=== PATIENT | male | born 1955 | race Caucasian/White ===

== ENCOUNTER 2018-02-15 15:12 | Inpatient (IN) ==
[~2018-02-15 15:12] MED LIST: Lidocaine PF 1% Inj 2 ML Ampul ONE
[2018-02-15] MEDS ORDERED: fentaNYL Citrate Inj 100 MCG/2 ML Ampul ONE (15:14)
[2018-02-15] MEDS ORDERED: ceFAZolin 2 GM Premix Inj 2 GM/50 ML PIGGYBACK IV.SIG ONE (15:18)
[2018-02-15] MEDS ORDERED: Diphtheria/Tetanus/Pertussis Vaccine Inj 0.5 ML Syringe IM ONE (15:18)
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
[2018-02-15 15:35] LABS: Baso # (Auto) 0.1 th/mm3 (0.0-0.2); Eos # (Auto) 0.5 th/mm3 (0.0-0.4); Eos % (Auto) 3.2 % (0.0-4.0); Hematocrit 44.5 % (39.0-51.0); Hemoglobin 14.6 gm/dL (13.0-17.0); Lymph # (Auto) 1.9 th/mm3 (1.0-4.8); Mean Corpuscular HGB Conc 32.8 % (32.0-36.0); Mean Corpuscular Hemoglobin 30.1 pg (27.0-34.0); Mean Corpuscular Volume 91.8 fL (80.0-100.0); Mean Platelet Volume 7.6 fL (7.0-11.0); Mono # (Auto) 0.8 th/mm3 (0.0-0.9); Mono % (Auto) 5.3 % (0.0-8.0); Neut # (Auto) 11.1 th/mm3 (1.8-7.7); Neut % (Auto) 77.5 % (16.0-70.0); Platelet Count 930 th/mm3 (150-450); Red Blood Count 4.85 mil/mm3 (4.50-5.90); Red Cell Distribution Width 15.6 % (11.6-17.2); White Blood Count 14.3 th/mm3 (4.0-11.0)
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
[2018-02-15 15:45] LABS: Activated Partial Thrombo Time 27.1 sec (24.3-30.1); INR 1.2 Ratio; Prothrombin Time 11.9 sec (9.8-11.6)
[2018-02-15] MEDS ORDERED: Midazolam Inj 5 MG/ML 1 ML Vial ONE (15:50)
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
[2018-02-15] MEDS ORDERED: Lidocaine PF 1% Inj 2 ML Ampul ONE (15:52)
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
[2018-02-15] MEDS ORDERED: Propofol 1000 mg/100 ml Inj 1,000 MG/100 ML BOTTLE ONE (15:56)
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
[2018-02-15] MEDS ORDERED: Sodium Chloride 0.9% 2 ML Flush PRN IV.FLUSH (16:41)
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
[2018-02-15] MEDS ORDERED: Morphine Inj 4 MG/ML Vial IV.PUSH PRN (17:11)
[2018-02-15] MEDS ORDERED: Naloxone Inj 0.4 MG/ML Vial IV.PUSH PRN (17:18)
[2018-02-15] MEDS: Pantoprazole Inj 40 MG Vial IV.PUSH SCH (17:22)
[2018-02-15] MEDS: Sod Chloride 0.9% Inj 1,000 ML IV.CONT SCH (17:22)
[2018-02-15] MEDS: Methocarbamol Inj 1,000 MG in Dextrose 5% in Water Inj 240 ML IV.SIG SCH ×2 (17:27)
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
[2018-02-15] MEDS: Morphine Inj 30 MG/30 ML PCA.VIAL PCA PRN ×2 (17:49→23:20)
[2018-02-15] MEDS: Lidocaine 5% Patch T-DERMAL SCH (18:13)
[2018-02-15] MEDS: Multivitamin Inj 10 ML, Thiamine Inj 100 MG, Folic Acid Inj 1 MG in Sodium Chlor 0.9% I... IV.SIG SCH (18:13)
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
[2018-02-15] MEDS: Docusate Sodium 100 MG Capsule PO SCH (20:10)
[2018-02-15] MEDS: Sodium Chloride 0.9% 2 ML Flush BID IV.FLUSH SCH (20:14)
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
[2018-02-16] MEDS: Methocarbamol Inj 1,000 MG in Dextrose 5% in Water Inj 240 ML IV.SIG SCH ×6 (00:01→16:20)
[2018-02-16] MEDS ORDERED: Chlorhexidine Gluconate 2% 1 Pack (2 Cloths) TOPICAL PRN (04:00)
[2018-02-16 04:15] LABS: Baso # (Auto) 0.1 th/mm3 (0.0-0.2); Baso % (Auto) 0.3 % (0.0-2.0); Hematocrit 37.4 % (39.0-51.0); Hemoglobin 12.3 gm/dL (13.0-17.0); Lymph # (Auto) 0.6 th/mm3 (1.0-4.8); Lymph % (Auto) 2.8 % (9.0-44.0); Mean Corpuscular Hemoglobin 30.6 pg (27.0-34.0); Mean Corpuscular Volume 92.7 fL (80.0-100.0); Mean Platelet Volume 7.6 fL (7.0-11.0); Mono # (Auto) 1.4 th/mm3 (0.0-0.9); Mono % (Auto) 6.1 % (0.0-8.0); Neut # (Auto) 20.5 th/mm3 (1.8-7.7); Neut % (Auto) 90.8 % (16.0-70.0); Platelet Count 877 th/mm3 (150-450); Red Blood Count 4.03 mil/mm3 (4.50-5.90); Red Cell Distribution Width 15.5 % (11.6-17.2); White Blood Count 22.6 th/mm3 (4.0-11.0)
[2018-02-16 04:33] LABS: Anion Gap 8 meq/L (5-15); Aspartate Aminotransferase 36 U/L (15-37); Blood Urea Nitrogen 17 mg/dL (7-18); Carbon Dioxide 21.6 meq/L (21.0-32.0); Chloride 112 meq/L (98-107); Glomerular Filtration Rate 62 mL/min (>89); Glucose,Random 174 mg/dL (74-106); Potassium 4.8 meq/L (3.5-5.1); Sodium 142 meq/L (136-145)
[2018-02-16 04:34] LABS: Alanine Aminotransferase 31 U/L (12-78)
[2018-02-16 04:37] LABS: Alkaline Phosphatase 49 U/L (45-117)
[2018-02-16] MEDS: Chlorhexidine Gluconate 2% 1 Pack (2 Cloths) TOPICAL SCH (04:38)
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
[2018-02-16] MEDS: Sod Chloride 0.9% Inj 1,000 ML IV.CONT SCH ×2 (05:53→16:00)
[2018-02-16] MEDS: Docusate Sodium 100 MG Capsule PO SCH ×2 (08:45→20:57)
[2018-02-16] MEDS: Sodium Chloride 0.9% 2 ML Flush BID IV.FLUSH SCH ×2 (08:45→21:02)
[2018-02-16] MEDS: Lidocaine 5% Patch T-DERMAL SCH (08:45)
[2018-02-16] MEDS: Morphine Inj 30 MG/30 ML PCA.VIAL PCA PRN ×2 (09:00→19:17)
[2018-02-16] MEDS: Ketorolac Inj 30 MG/ML (IVP) Vial IV.PUSH SCH ×3 (12:20→23:56)
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
--- NOTE | 2018-02-16 15:02 | ECG ---
Date Performed: 02/16/2018 Time Performed: 05:02:26 PTAGE: 89 years EKG: Sinus rhythm . Low QRS voltages in precordial leads Borderline ECG NO PREVIOUS TRACING DOCTOR: Spencer Patel Interpretating Date/Time 02/16/2018 15:00:18
[2018-02-16] MEDS: Pantoprazole Inj 40 MG Vial IV.PUSH SCH (16:19)
[2018-02-16] MEDS: Multivitamin Inj 10 ML, Thiamine Inj 100 MG, Folic Acid Inj 1 MG in Sodium Chlor 0.9% I... IV.SIG SCH (17:31)
[2018-02-17] MEDS: Methocarbamol Inj 1,000 MG in Dextrose 5% in Water Inj 240 ML IV.SIG SCH ×6 (00:42→17:05)
[2018-02-17] MEDS: Morphine Inj 30 MG/30 ML PCA.VIAL PCA PRN ×2 (03:57→17:37)
[2018-02-17 04:26] LABS: Baso # (Auto) 0.1 th/mm3 (0.0-0.2); Baso % (Auto) 0.8 % (0.0-2.0); Eos # (Auto) 0.3 th/mm3 (0.0-0.4); Eos % (Auto) 2.9 % (0.0-4.0); Hematocrit 25.9 % (39.0-51.0); Hemoglobin 8.8 gm/dL (13.0-17.0); Lymph # (Auto) 1.2 th/mm3 (1.0-4.8); Lymph % (Auto) 11.3 % (9.0-44.0); Mean Corpuscular HGB Conc 34.1 % (32.0-36.0); Mean Corpuscular Hemoglobin 31.2 pg (27.0-34.0); Mean Corpuscular Volume 91.6 fL (80.0-100.0); Mean Platelet Volume 7.8 fL (7.0-11.0); Mono # (Auto) 0.9 th/mm3 (0.0-0.9); Mono % (Auto) 7.8 % (0.0-8.0); Neut # (Auto) 8.6 th/mm3 (1.8-7.7); Neut % (Auto) 77.2 % (16.0-70.0); Platelet Count 619 th/mm3 (150-450); Red Blood Count 2.83 mil/mm3 (4.50-5.90); Red Cell Distribution Width 15.7 % (11.6-17.2); White Blood Count 11.1 th/mm3 (4.0-11.0)
[2018-02-17 04:32] LABS: Albumin 2.6 g/dL (3.4-5.0); Calcium 7.3 mg/dL (8.5-10.1); Carbon Dioxide 25.6 meq/L (21.0-32.0); Potassium 4.4 meq/L (3.5-5.1); Total Protein 5.1 g/dL (6.4-8.2)
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
[2018-02-17] MEDS: Chlorhexidine Gluconate 2% 1 Pack (2 Cloths) TOPICAL SCH (06:13)
[2018-02-17] MEDS: Ketorolac Inj 30 MG/ML (IVP) Vial IV.PUSH SCH ×4 (06:22→22:19)
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
[2018-02-17] MEDS ORDERED: Tranexamic Acid Inj 1,035 MG in Sodium Chlor 0.9% Inj 100 ML IV.SIG SCH (07:48)
[2018-02-17] MEDS: Sod Chloride 0.9% Inj 1,000 ML IV.CONT SCH ×3 (08:29→19:00)
[2018-02-17] MEDS: Sodium Chloride 0.9% 2 ML Flush BID IV.FLUSH SCH ×2 (08:29→20:40)
[2018-02-17] MEDS: Docusate Sodium 100 MG Capsule PO SCH ×2 (08:30→20:40)
[2018-02-17] MEDS: Lidocaine 5% Patch T-DERMAL SCH (08:31)
[2018-02-17] MEDS ORDERED: Heparin - SQ 10,000 UNITS/ML Vial ONE (10:10)
[2018-02-17] MEDS ORDERED: Lidocaine PF 1% Inj 5 ML Syringe OTHER ONE (11:00)
[2018-02-17] MEDS ORDERED: Phenylephrine/NS 1000 MCG/10ML Syringe IV.PUSH ONE (11:00)
[2018-02-17] MEDS ORDERED: Neostigmine Inj 5 MG/5 ML Syringe IV.PUSH ONE (11:00)
[2018-02-17] MEDS ORDERED: Glycopyrrolate Inj 1 MG/5 ML Syringe IV.PUSH ONE (11:00)
[2018-02-17] MEDS ORDERED: Post-op Orders (for Pharmacy) OTHER STA (13:08)
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
[2018-02-17] MEDS ORDERED: Vancomycin Consult Pharmacy 1 EACH OTHER SCH (13:15)
[2018-02-17] MEDS ORDERED: fentaNYL Citrate Inj 100 MCG/2 ML Ampul ONE (14:07)
[2018-02-17] MEDS ORDERED: *morphine SULFATE 4 MG/ML PERIprocedure ONLY ONE ×3 (14:19→14:39)
--- NOTE | 2018-02-17 15:08 | XR ---
EXAM DATE: 02/17/2018 2:15 PM EDT AGE/SEX: 62 years / Male INDICATIONS: Short of breath. Bilateral chest tubes. CLINICAL DATA: This is the patient's subsequent encounter. Patient reports that signs and symptoms h ave been present for 3 days and indicates a pain score of 8/10. MEDICAL/SURGICAL HISTORY: Hepatitis C. None. COMPARISON: [facility], CHEST 1V SINGLE AP, 02/17/2018. . FINDINGS: 2 AP erect portable views of the chest were obtained and demonstrate the bilateral chest tubes in isai ce without significant change in position. Small lateral apical pneumothoraces are again identified. These are not significantly changed. On the left this measures up to approximately 1 cm and on the ri ght this measures approximately 8 mm. There are no confluent infiltrates or effusions. The heart size remains within normal limits. There is no mediastinal shift. A posterior left sixth rib fracture is visualized. CONCLUSION: Small bilateral apical pneumothoraces without significant change. Electronically signed by: Sean Fagan MD 02/17/2018 3:07 PM EDT
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
[2018-02-17] MEDS: Pantoprazole Inj 40 MG Vial IV.PUSH SCH (16:37)
[2018-02-17] MEDS: ceFAZolin 2 GM Premix Inj 2 GM/50 ML PIGGYBACK IV.SIG SCH (17:05)
[2018-02-17] MEDS: Calcium/Vitamin D 250/125 MG Tablet PO SCH (17:41)
[2018-02-17 18:01] LABS: Hematocrit 17.5 % (39.0-51.0); Hemoglobin 5.8 gm/dL (13.0-17.0)
[2018-02-17 18:53] LABS: Hematocrit 24.5 % (39.0-51.0); Hemoglobin 8.2 gm/dL (13.0-17.0); Mean Corpuscular HGB Conc 33.6 % (32.0-36.0); Mean Corpuscular Volume 92.3 fL (80.0-100.0); Mean Platelet Volume 8.1 fL (7.0-11.0); Platelet Count 654 th/mm3 (150-450); Red Blood Count 2.66 mil/mm3 (4.50-5.90); Red Cell Distribution Width 15.5 % (11.6-17.2); White Blood Count 15.7 th/mm3 (4.0-11.0)
[2018-02-17] MEDS: Multivitamin Inj 10 ML, Thiamine Inj 100 MG, Folic Acid Inj 1 MG in Sodium Chlor 0.9% I... IV.SIG SCH (19:27)
[2018-02-17] MEDS: Vancomycin Inj 1,000 MG in Sodium Chlor 0.9% Inj 250 ML IV.SIG SCH (23:38)
[2018-02-18] MEDS: Morphine Inj 30 MG/30 ML PCA.VIAL PCA PRN ×3 (00:32→13:37)
[2018-02-18] MEDS: ceFAZolin 2 GM Premix Inj 2 GM/50 ML PIGGYBACK IV.SIG SCH ×3 (00:46→17:00)
[2018-02-18] MEDS: Methocarbamol Inj 1,000 MG in Dextrose 5% in Water Inj 240 ML IV.SIG SCH ×4 (01:23→08:46)
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
[2018-02-18] MEDS: Chlorhexidine Gluconate 2% 1 Pack (2 Cloths) TOPICAL SCH (04:26)
[2018-02-18] MEDS: Ketorolac Inj 30 MG/ML (IVP) Vial IV.PUSH SCH ×4 (04:31→22:06)
[2018-02-18 04:47] LABS: Baso # (Auto) 0.1 th/mm3 (0.0-0.2); Baso % (Auto) 0.5 % (0.0-2.0); Eos % (Auto) 0.1 % (0.0-4.0); Hematocrit 23.8 % (39.0-51.0); Lymph # (Auto) 0.6 th/mm3 (1.0-4.8); Lymph % (Auto) 3.8 % (9.0-44.0); Mean Corpuscular HGB Conc 33.8 % (32.0-36.0); Mean Corpuscular Hemoglobin 30.8 pg (27.0-34.0); Mean Corpuscular Volume 91.3 fL (80.0-100.0); Mean Platelet Volume 8.3 fL (7.0-11.0); Mono % (Auto) 6.8 % (0.0-8.0); Neut # (Auto) 13.7 th/mm3 (1.8-7.7); Neut % (Auto) 88.8 % (16.0-70.0); Platelet Count 622 th/mm3 (150-450); Red Blood Count 2.61 mil/mm3 (4.50-5.90); Red Cell Distribution Width 15.5 % (11.6-17.2); White Blood Count 15.5 th/mm3 (4.0-11.0)
--- NOTE | 2018-02-18 05:03 | XR ---
EXAM DATE: 02/18/2018 6:00 AM EDT AGE/SEX: 62 years / Male INDICATIONS: Shortness of breath. CLINICAL DATA: This is the patient's subsequent encounter. Patient reports that signs and symptoms h ave been present for 4 - 6 days and indicates a pain score of Nonresponsive. MEDICAL/SURGICAL HISTORY: Hepatitis C. None. COMPARISON: [facility], CHEST 1V SINGLE AP, 02/17/2018. . FINDINGS: Stable bilateral chest tubes in place. The apical pneumothoraces are stable but less evident on curre nt exam. Mild bibasilar airspace disease. Cardiomediastinal contours are stable. Remainder of the exa m is unchanged. CONCLUSION: 1. Stable bilateral chest tubes with trace biapical pneumothoraces. 2. Mild bibasilar airspace disease, likely atelectasis. Electronically signed by: Zack Benson MD 02/18/2018 5:01 AM EDT
[2018-02-18 05:11] LABS: Albumin 2.5 g/dL (3.4-5.0); Calcium 7.1 mg/dL (8.5-10.1); Carbon Dioxide 25.5 meq/L (21.0-32.0); Potassium 4.7 meq/L (3.5-5.1); Total Protein 5.5 g/dL (6.4-8.2)
[2018-02-18] MEDS: Morphine Inj 4 MG/ML Vial IV.PUSH PRN ×2 (07:37→12:40)
--- NOTE | 2018-02-18 07:46 | P.PNOP ---
Subjective Interval history: POD 1 s/p ORIF right posterior acetabulum states pin in hip but controlled. Physical Exam Vital signs: Vital Signs 02/17/18 08:00 02/17/18 10:02 02/17/18 14:00 Temperature 98.1 F 98.0 F 96.7 F L Pulse Rate 80 72 98 H Respiratory Rate 20 14 31 H Blood Pressure 143/70 H 139/63 156/73 H Pulse Oximetry 95 95 98 02/17/18 14:15 02/17/18 14:20 02/17/18 14:30 Temperature 98.3 F Pulse Rate 89 93 H Respiratory Rate 24 20 Blood Pressure 127/75 147/68 H Pulse Oximetry 94 L 92 L 02/17/18 14:45 02/17/18 15:00 02/17/18 15:15 Temperature 97.7 F Pulse Rate 87 84 83 Respiratory Rate 15 12 14 Blood Pressure 152/67 H 139/54 L 137/63 Pulse Oximetry 92 L 92 L 97 02/17/18 16:00 02/17/18 18:00 02/17/18 18:07 Temperature Pulse Rate 79 83 Respiratory Rate 16 Blood Pressure Pulse Oximetry 02/17/18 19:17 02/17/18 19:47 02/17/18 20:00 Temperature 98.3 F Pulse Rate 84 Respiratory Rate 16 18 Blood Pressure 136/69 Pulse Oximetry 98 95 02/18/18 00:00 02/18/18 04:00 Temperature 98.2 F 98.2 F Pulse Rate 76 87 Respiratory Rate 18 22 Blood Pressure 141/64 H 136/62 Pulse Oximetry 94 L 96 Intake & Output 02/17/18 02/18/18 02/18/18 18:59 06:59 18:59 Intake Total 2965 / 2965 2431.2 / 2431.2 Output Total 2125 / 2125 500 / 500 Balance 840 / 840 1931.2 / 1931.2 Weight 82.2 kg Intake: IV 725 / 725 1111.2 / 1111.2 LR 1000 mL Inj 1,000 ML @ 90 225 / 225 mls/hr IV.CONT .Q11H7M [facility] Rx#: [id number] Robaxin Inj 1,000 MG In D5W Inj 500 / 500 250 / 250 240 ML @ 500 mls/hr IV.SIG Q8H [facility] Rx#:[id number] MVI-12 Inj 10 ML Thiamine Inj 511.2 / 511.2 100 MG Folvite Inj 1 MG In NS Inj 500 ML @ 125 mls/hr IV.SIG Q24H [facility] Rx#:[id number] Vancomycin Inj 1,000 MG In NS 250 / 250 Inj 250 ML @ 250 mls/hr IV.SIG Q12H [facility] Rx#:[id number] Ancef 2 GM Premix Inj 2 gm In 100 / 100 50 ml @ 100 mls/hr IV.SIG Q8H [facility] Rx#:[id number] Oral 240 / 240 1320 / 1320 Anesthesia Amount 1999 / 1999 Output: Urine 500 / 500 Estimated Blood Loss 600 / 600 Urine Amount (Catheter) 1525 / 1525 Indwelling Urethral Catheter 1525 / 1525 Chest Tube Drainage 0 / 0 0 / 0 Left Mid-Axillary Chest 0 / 0 0 / 0 Right Mid-Axillary Chest 0 / 0 0 / 0 Other: Date of Last Bowel Movement 02/15/17 02/15/17 # Bowel Movements 0 Narrative: RLE: dressings clean and dry. intact. +foot drop. decreased sensation over L4/ L5 dermatome. - Urinary Catheter Management Condom Cath placed during this visit: no Indwelling Urethral Catheter Cath placed during this visit: yes Reason for continuing: Hourly intake/output Insertion date: 02/17/18 Results - Labs CBC & Chem 7: 02/18/18 04:07 02/18/18 04:07 Laboratory Results - last 24 hr 02/17/18 02/17/18 02/17/18 07:15 07:45 17:02 WBC RBC Hgb 5.8 L* D Hct 17.5 L* MCV MCH MCHC RDW Plt Count MPV Neut % (Auto) Lymph % (Auto) [place] % (Auto) Eos % (Auto) Baso % (Auto) Neut # (Auto) Lymph # (Auto) [place] # (Auto) Eos # (Auto) Baso # (Auto) WBC Differential Differential Comment Sodium Potassium Chloride Carbon Dioxide Anion Gap BUN Creatinine Estimated GFR Random Glucose Calcium Prot Corrected Calcium Total Bilirubin AST ALT Alkaline Phosphatase Total Protein Albumin MTS Gel Crossmatch See Detail See Detail Bld Prod Order Comment Cancelled 02/17/18 02/18/18 02/18/18 18:36 04:07 04:07 WBC 15.7 H 15.5 H RBC 2.66 L 2.61 L Hgb 8.2 L D 8.0 L Hct 24.5 L 23.8 L MCV 92.3 91.3 MCH 31.0 30.8 MCHC 33.6 33.8 RDW 15.5 15.5 Plt Count 654 H 622 H MPV 8.1 8.3 Neut % (Auto) 88.8 H Lymph % (Auto) 3.8 L [place] % (Auto) 6.8 Eos % (Auto) 0.1 Baso % (Auto) 0.5 Neut # (Auto) 13.7 H Lymph # (Auto) 0.6 L [place] # (Auto) 1.0 H Eos # (Auto) 0.0 Baso # (Auto) 0.1 WBC Differential . Differential Comment Auto diff final Sodium 140 Potassium 4.7 Chloride 107 Carbon Dioxide 25.5 Anion Gap 8 BUN 13 Creatinine 0.90 Estimated GFR 86 L Random Glucose 144 H Calcium 7.1 L* Prot Corrected Calcium 7.9 L Total Bilirubin 0.4 AST 55 H ALT 30 Alkaline Phosphatase 48 Total Protein 5.5 L Albumin 2.5 L MTS Gel Crossmatch Bld Prod Order Comment - Imaging Impressions Pelvis X-Ray 02/17/18 00:00 CONCLUSION: Status post open rigid internal fixation. Chest X-Ray 02/17/18 14:15 CONCLUSION: Small bilateral apical pneumothoraces without significant change. Chest X-Ray 02/18/18 06:00 CONCLUSION: 1. Stable bilateral chest tubes with trace biapical pneumothoraces. 2. Mild bibasilar airspace disease, likely atelectasis. Assessment and Plan - Assessment and Plan 1) Right Acetabulum fx s/p ORIF - POD 1 -NWB -posterior hip precautions -CKS -daily dressing changes -will send for CT of hip today to eval anterior acetabulum. depending on CT results, may require further surgical fixation of anterior pelvis. -will evaluate after CT -will order PODUS boot for foot drop
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
[2018-02-18] MEDS: Indomethacin 75 MG ER Capsule PO SCH (08:46)
[2018-02-18] MEDS: Calcium/Vitamin D 250/125 MG Tablet PO SCH ×3 (08:46→18:17)
[2018-02-18] MEDS: Docusate Sodium 100 MG Capsule PO SCH ×2 (08:46→20:31)
[2018-02-18] MEDS: Lidocaine 5% Patch T-DERMAL SCH (08:46)
[2018-02-18] MEDS: Folic Acid 1 MG Tablet PO SCH (08:47)
[2018-02-18] MEDS ORDERED: Enoxaparin Inj 30 MG/0.3 ML Syringe SQ SCH ×2 (09:00→13:00)
[2018-02-18] MEDS: Vancomycin Inj 1,000 MG in Sodium Chlor 0.9% Inj 250 ML IV.SIG SCH (10:48)
[2018-02-18] MEDS: Sodium Chloride 0.9% 2 ML Flush BID IV.FLUSH SCH ×2 (13:41→20:31)
[2018-02-18] MEDS: Methocarbamol 500 MG Tablet PO SCH ×2 (13:41→22:06)
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
[2018-02-18] MEDS: Pantoprazole Inj 40 MG Vial IV.PUSH SCH (17:00)
[2018-02-18] MEDS ORDERED: Influenza (Quadrivalent) Vaccine 0.5 ML Syringe IM ONE (20:00)
[2018-02-18] MEDS: Sod Chloride 0.9% Inj 1,000 ML IV.CONT SCH (21:34)
[2018-02-19] MEDS: Morphine Inj 30 MG/30 ML PCA.VIAL PCA PRN ×3 (00:55→21:12)
[2018-02-19] MEDS: ceFAZolin 2 GM Premix Inj 2 GM/50 ML PIGGYBACK IV.SIG SCH ×4 (00:55→23:00)
[2018-02-19] MEDS: Chlorhexidine Gluconate 2% 1 Pack (2 Cloths) TOPICAL SCH (03:43)
--- NOTE | 2018-02-19 04:44 | XR ---
EXAM DATE: 02/19/2018 6:00 AM EDT AGE/SEX: 62 years / Male INDICATIONS: Shortness of breath. CLINICAL DATA: This is the patient's subsequent encounter. Patient reports that signs and symptoms h ave been present for 4 - 6 days and indicates a pain score of Nonresponsive. MEDICAL/SURGICAL HISTORY: . Hepatitis C. None. COMPARISON: [facility] – [place], CHEST 1V SINGLE AP, 02/18/2018. . FINDINGS: Stable bilateral chest tubes in place with persistent trace biapical pneumothoraces. Mild patchy airs pace disease in the lower lung zones bilaterally. Cardiomediastinal contours are stable. Remainder of exam is unchanged. CONCLUSION: 1. No significant interval change. 2. Stable bilateral chest tubes with stable trace biapical pneumothoraces. 3. Stable bilateral lower lung zone patchy airspace disease. Electronically signed by: Zack Benson MD 02/19/2018 4:42 AM EDT
[2018-02-19 05:08] LABS: Baso % (Auto) 0.6 % (0.0-2.0); Eos # (Auto) 0.3 th/mm3 (0.0-0.4); Eos % (Auto) 3.8 % (0.0-4.0); Hematocrit 21.8 % (39.0-51.0); Hemoglobin 7.4 gm/dL (13.0-17.0); Lymph # (Auto) 0.5 th/mm3 (1.0-4.8); Lymph % (Auto) 7.5 % (9.0-44.0); Mean Corpuscular Hemoglobin 31.2 pg (27.0-34.0); Mean Corpuscular Volume 91.8 fL (80.0-100.0); Mean Platelet Volume 7.9 fL (7.0-11.0); Mono # (Auto) 0.6 th/mm3 (0.0-0.9); Mono % (Auto) 8.7 % (0.0-8.0); Neut # (Auto) 5.7 th/mm3 (1.8-7.7); Neut % (Auto) 79.4 % (16.0-70.0); Platelet Count 614 th/mm3 (150-450); Red Blood Count 2.38 mil/mm3 (4.50-5.90); Red Cell Distribution Width 15.1 % (11.6-17.2); White Blood Count 7.1 th/mm3 (4.0-11.0)
[2018-02-19 05:17] LABS: Alanine Aminotransferase 27 U/L (12-78); Albumin 2.1 g/dL (3.4-5.0); Alkaline Phosphatase 49 U/L (45-117); Anion Gap 5 meq/L (5-15); Aspartate Aminotransferase 42 U/L (15-37); Blood Urea Nitrogen 16 mg/dL (7-18); Calcium 7.3 mg/dL (8.5-10.1); Carbon Dioxide 29.5 meq/L (21.0-32.0); Chloride 107 meq/L (98-107); Glomerular Filtration Rate Greater Than 89 mL/min (>89); Glucose,Random 110 mg/dL (74-106); Potassium 4.4 meq/L (3.5-5.1); Sodium 141 meq/L (136-145); Total Protein 4.7 g/dL (6.4-8.2)
[2018-02-19] MEDS: Ketorolac Inj 30 MG/ML (IVP) Vial IV.PUSH SCH ×4 (05:20→22:58)
[2018-02-19] MEDS: Methocarbamol 500 MG Tablet PO SCH ×3 (05:20→21:19)
[2018-02-19] MEDS ORDERED: Ketamine Inj 50 MG/5 ML Syringe IV.PUSH ONE ×2 (06:10→07:07)
[2018-02-19] MEDS ORDERED: Heparin - SQ 10,000 UNITS/ML Vial ONE (06:21)
[2018-02-19] MEDS ORDERED: Glycopyrrolate Inj 1 MG/5 ML Syringe IV.PUSH ONE (07:30)
[2018-02-19] MEDS ORDERED: Phenylephrine/NS 1000 MCG/10ML Syringe IV.PUSH ONE (07:30)
[2018-02-19] MEDS ORDERED: Neostigmine Inj 5 MG/5 ML Syringe IV.PUSH ONE (07:30)
[2018-02-19 08:36] LABS: Hematocrit 20.1 % (39.0-51.0); Hemoglobin 6.7 gm/dL (13.0-17.0)
[2018-02-19] MEDS ORDERED: Post-op Orders (for Pharmacy) OTHER STA (09:10)
[2018-02-19] MEDS ORDERED: Vancomycin Consult Pharmacy 1 EACH OTHER SCH (09:15)
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
--- NOTE | 2018-02-19 09:48 | P.PNOP ---
Subjective Interval history: POD 0 s/p ORIF anterior column of acetabulum POD 2 s/p ORIF posterior column/wall stable in pacu Physical Exam Vital signs: Vital Signs 02/18/18 10:00 02/18/18 12:00 02/18/18 13:00 Temperature 98.1 F Pulse Rate 91 H 90 Respiratory Rate 17 18 Blood Pressure 132/60 Pulse Oximetry 97 02/18/18 13:41 02/18/18 14:00 02/18/18 14:07 Temperature Pulse Rate 85 Respiratory Rate 17 18 Blood Pressure Pulse Oximetry 02/18/18 16:00 02/18/18 18:00 02/18/18 20:00 Temperature 98.3 F 98.0 F Pulse Rate 84 79 90 Respiratory Rate 17 22 Blood Pressure 145/65 H 140/65 Pulse Oximetry 94 L 92 L 02/18/18 20:26 02/18/18 22:50 02/19/18 00:00 Temperature 98.4 F Pulse Rate 100 H Respiratory Rate 16 26 H Blood Pressure 158/69 H Pulse Oximetry 93 L 91 L 02/19/18 01:25 02/19/18 04:00 02/19/18 06:46 Temperature 98.3 F Pulse Rate 84 79 Respiratory Rate 20 14 Blood Pressure 123/58 L Pulse Oximetry 91 L Intake & Output 02/18/18 02/19/18 02/19/18 18:59 06:59 18:59 Intake Total 1140 / 1140 1290 / 1290 2875 / 2875 Output Total 975 / 975 950 / 950 1150 / 1150 Balance 165 / 165 340 / 340 1725 / 1725 Weight 79.2 kg Intake: IV 600 / 600 1050 / 1050 Robaxin Inj 1,000 MG In D5W Inj 250 / 250 240 ML @ 500 mls/hr IV.SIG Q8H [facility] Rx#:[id number] Vancomycin Inj 1,000 MG In NS 250 / 250 Inj 250 ML @ 250 mls/hr IV.SIG Q12H [facility] Rx#:[id number] Ancef 2 GM Premix Inj 2 gm In 100 / 100 50 / 50 50 ml @ 100 mls/hr IV.SIG Q8H [facility] Rx#:[id number] Oral 540 / 540 240 / 240 Anesthesia Amount 1800 / 1800 Intake (Blood Product) Amt 400 / 400 Rbc As-3 Leukoreduced Unit 400 / 400 [id number] Autotransfusion Amount 400 / 400 Cell Saver Amount 275 / 275 Output: Urine 975 / 975 700 / 700 Estimated Blood Loss 700 / 700 Urine Amount (Catheter) 450 / 450 Indwelling Urethral Catheter 450 / 450 Chest Tube Drainage 250 / 250 Left Mid-Axillary Chest 80 / 80 Right Mid-Axillary Chest 170 / 170 Other: # Voids 1 Date of Last Bowel Movement 02/15/17 02/19/18 # Bowel Movements 0 1 Narrative: RLE: dressings clean and dry. intact. NVI. +drain - Urinary Catheter Management Condom Cath placed during this visit: no Indwelling Urethral Catheter Cath placed during this visit: yes Reason for continuing: Hourly intake/output Insertion date: 02/17/18 Results - Labs CBC & Chem 7: 02/19/18 08:10 02/19/18 04:28 Laboratory Results - last 24 hr 02/17/18 02/17/18 02/19/18 07:15 07:45 04:28 WBC 7.1 RBC 2.38 L Hgb 7.4 L Hct 21.8 L MCV 91.8 MCH 31.2 MCHC 34.0 RDW 15.1 Plt Count 614 H MPV 7.9 Neut % (Auto) 79.4 H Lymph % (Auto) 7.5 L [place] % (Auto) 8.7 H Eos % (Auto) 3.8 Baso % (Auto) 0.6 Neut # (Auto) 5.7 Lymph # (Auto) 0.5 L [place] # (Auto) 0.6 Eos # (Auto) 0.3 Baso # (Auto) 0.0 WBC Differential . Differential Comment Auto diff final Sodium Potassium Chloride Carbon Dioxide Anion Gap BUN Creatinine Estimated GFR Random Glucose Calcium Prot Corrected Calcium Total Bilirubin AST ALT Alkaline Phosphatase Total Protein Albumin Blood Type Blood Type Recheck Antibody Screen MTS Gel Crossmatch See Detail See Detail Bld Prod Order Comment Cancelled 02/19/18 02/19/18 02/19/18 04:28 04:28 07:20 WBC RBC Hgb Hct MCV MCH MCHC RDW Plt Count MPV Neut % (Auto) Lymph % (Auto) [place] % (Auto) Eos % (Auto) Baso % (Auto) Neut # (Auto) Lymph # (Auto) [place] # (Auto) Eos # (Auto) Baso # (Auto) WBC Differential Differential Comment Sodium 141 Potassium 4.4 Chloride 107 Carbon Dioxide 29.5 Anion Gap 5 BUN 16 Creatinine 0.79 Estimated GFR Greater than 89 Random Glucose 110 H Calcium 7.3 L* Prot Corrected Calcium 8.7 D Total Bilirubin 0.4 AST 42 H ALT 27 Alkaline Phosphatase 49 Total Protein 4.7 L D Albumin 2.1 L Blood Type O Positive Blood Type Recheck Not needed Antibody Screen Negative MTS Gel Crossmatch See Detail See Detail Bld Prod Order Comment 02/19/18 02/19/18 08:10 08:55 WBC RBC Hgb 6.7 L* Hct 20.1 L* MCV MCH MCHC RDW Plt Count MPV Neut % (Auto) Lymph % (Auto) [place] % (Auto) Eos % (Auto) Baso % (Auto) Neut # (Auto) Lymph # (Auto) [place] # (Auto) Eos # (Auto) Baso # (Auto) WBC Differential Differential Comment Sodium Potassium Chloride Carbon Dioxide Anion Gap BUN Creatinine Estimated GFR Random Glucose Calcium Prot Corrected Calcium Total Bilirubin AST ALT Alkaline Phosphatase Total Protein Albumin Blood Type Blood Type Recheck Antibody Screen MTS Gel Crossmatch See Detail Bld Prod Order Comment - Imaging Impressions Chest X-Ray 02/19/18 06:00 CONCLUSION: 1. No significant interval change. 2. Stable bilateral chest tubes with stable trace biapical pneumothoraces. 3. Stable bilateral lower lung zone patchy airspace disease. Assessment and Plan - Assessment and Plan 1) Right posterior wall and column Acetabulum fx s/p ORIF - POD 2 2) Right Anterior column/wall Acetabulum fx s/p ORIF - POD 0 -NWB -posterior hip precautions -CKS -daily dressing changes of lateral hip with primapore. -daily dressing changes of anterior pelvis with xeroform/Primapore -will plan to DC drain POD 2 or 3 -PODUS boot for foot drop right leg -ortho surgeries complete -CM for DC planning -DVT prophylaxis -f/u with [facility] or [facility] in 2 weeks [id number] Prescription Drug Monitoring Database has been queried and verified prior to prescribing the controlled substance. Acute pain exception. This patient has normal, predicted, physiological, and time limited response to an adverse mechanical stimulus associated with surgery, trauma, or acute illness as described in my notes. There is a lack of alternative treatment options other than to include the prescribed narcotic treatment for this condition.
[2018-02-19] MEDS ORDERED: *Meperidine Inj 25 MG/ML Vial PERIprocedural Use ONLY ONE (09:51)
[2018-02-19] MEDS ORDERED: fentaNYL Citrate Inj 100 MCG/2 ML Ampul ONE (09:57)
[2018-02-19] MEDS: Morphine Inj 4 MG/ML Vial IV.PUSH PRN ×2 (14:23→17:36)
--- NOTE | 2018-02-19 14:42 | XR ---
EXAM DATE: 02/19/2018 12:00 AM EDT AGE/SEX: 62 years / Male INDICATIONS: ORIF right acetabulum fracture. CLINICAL DATA: This is the patient's subsequent encounter. Patient reports that signs and symptoms h ave been present for 4 - 6 days and indicates a pain score of Nonresponsive. MEDICAL/SURGICAL HISTORY: Non-responsive. Non-responsive. COMPARISON: [facility] – [place], PELVIS AP & JUDET VIEWS ([id number]), 02/17/2018. . FINDINGS: Multiple coned-down views of the right side of pelvis were obtained and demonstrate placement of 3 sc rew plate fixation devices transfixing the right acetabular fracture. One is new from the prior study is located along the medial acetabulum and upper pubic rami. CONCLUSION: Status post open rigid internal fixation. Electronically signed by: Sean Fagan MD 02/19/2018 2:40 PM EDT
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
[2018-02-19] MEDS: Docusate Sodium 100 MG Capsule PO SCH ×2 (16:51→21:19)
[2018-02-19] MEDS: Indomethacin 75 MG ER Capsule PO SCH (16:51)
[2018-02-19] MEDS: Sodium Chloride 0.9% 2 ML Flush BID IV.FLUSH SCH ×2 (16:51→21:21)
[2018-02-19] MEDS: Folic Acid 1 MG Tablet PO SCH (16:51)
[2018-02-19] MEDS: Calcium/Vitamin D 250/125 MG Tablet PO SCH ×3 (16:52→17:36)
[2018-02-19] MEDS: Enoxaparin Inj 30 MG/0.3 ML Syringe SQ SCH ×2 (16:53→21:20)
[2018-02-19] MEDS: Pantoprazole Inj 40 MG Vial IV.PUSH SCH (17:35)
[2018-02-19] MEDS: Lidocaine 5% Patch T-DERMAL SCH (17:44)
[2018-02-19] MEDS: Vancomycin Inj 1,500 MG in Sodium Chlor 0.9% Inj 500 ML IV.SIG SCH (17:44)
[2018-02-20] MEDS: Morphine Inj 30 MG/30 ML PCA.VIAL PCA PRN (03:38)
[2018-02-20] MEDS: Vancomycin Inj 1,500 MG in Sodium Chlor 0.9% Inj 500 ML IV.SIG SCH ×2 (03:39→17:25)
[2018-02-20] MEDS: Chlorhexidine Gluconate 2% 1 Pack (2 Cloths) TOPICAL SCH (03:39)
[2018-02-20 03:50] LABS: Hematocrit 19.6 % (39.0-51.0); Hemoglobin 6.7 gm/dL (13.0-17.0)
[2018-02-20] MEDS: Methocarbamol 500 MG Tablet PO SCH ×3 (05:03→23:25)
[2018-02-20] MEDS: Ketorolac Inj 30 MG/ML (IVP) Vial IV.PUSH SCH ×4 (05:03→23:35)
--- NOTE | 2018-02-20 07:12 | P.PNOP ---
Subjective Interval history: POD 3 s/p ORIF posterior acetabulum POD 1 s/p ORIF anterior acetabulum doing well. reports discomfort around anterior incision but resting comfortably. reports right foot numbness Physical Exam Vital signs: Vital Signs 02/19/18 09:45 02/19/18 10:00 02/19/18 10:15 Temperature 97.8 F Pulse Rate 85 73 72 Respiratory Rate 16 16 16 Blood Pressure 115/86 127/60 113/55 L Pulse Oximetry 95 95 02/19/18 10:30 02/19/18 10:40 02/19/18 12:00 Temperature 97.8 F 97.8 F 98.4 F Pulse Rate 76 76 70 Respiratory Rate 16 16 22 Blood Pressure 120/56 L 120/56 L 114/58 L Pulse Oximetry 95 95 97 02/19/18 12:12 02/19/18 16:00 02/19/18 16:53 Temperature 98.1 F Pulse Rate 74 Respiratory Rate 21 8 L Blood Pressure 109/57 L Pulse Oximetry 95 94 L 02/19/18 17:31 02/19/18 19:55 02/19/18 20:00 Temperature 98.1 F Pulse Rate 86 Respiratory Rate 20 Blood Pressure 120/57 L Pulse Oximetry 95 93 L 92 L 02/19/18 21:42 02/19/18 23:28 02/20/18 00:00 Temperature 97.9 F Pulse Rate 84 Respiratory Rate 18 17 16 Blood Pressure 129/60 Pulse Oximetry 93 L 02/20/18 04:00 02/20/18 04:08 02/20/18 05:33 Temperature 98.4 F Pulse Rate 92 H Respiratory Rate 22 18 20 Blood Pressure 142/68 H Pulse Oximetry 98 02/20/18 06:29 02/20/18 06:50 Temperature 98.4 F Pulse Rate 84 88 Respiratory Rate 18 19 Blood Pressure 139/60 139/60 Pulse Oximetry 98 98 Intake & Output 02/19/18 02/20/18 02/20/18 18:59 06:59 18:59 Intake Total 3275 / 3275 1770 / 1770 Output Total 2040 / 2040 670 / 670 Balance 1235 / 1235 1100 / 1100 Weight 81.9 kg Intake: IV 1130 / 1130 Vancomycin Inj 1,500 MG In NS 1030 / 1030 Inj 500 ML @ 257.5 mls/hr IV. SIG Q12H SANJU Rx#:[id number] Ancef 2 GM Premix Inj 2 gm In 100 / 100 50 ml @ 100 mls/hr IV.SIG Q8H SANJU Rx#:[id number] Oral 400 / 400 240 / 240 Anesthesia Amount 1800 / 1800 Intake (Blood Product) Amt 400 / 400 400 / 400 Rbc As-3 Leukoreduced Unit 0 / 0 [id number] Rbc As-3 Leukoreduced Unit 400 / 400 [id number] Rbc As-3 Leukoreduced Unit 400 / 400 [id number] Autotransfusion Amount 400 / 400 Cell Saver Amount 275 / 275 Output: Estimated Blood Loss 700 / 700 Urine Amount (Catheter) 1150 / 1150 600 / 600 Condom 600 / 600 Indwelling Urethral Catheter 1150 / 1150 Wound Drainage 40 / 40 # 1 Right Hip KAREN Drain 40 / 40 Chest Tube Drainage 190 / 190 30 / 30 Left Mid-Axillary Chest 90 / 90 0 / 0 Right Mid-Axillary Chest 100 / 100 30 / 30 Other: Date of Last Bowel Movement 02/19/18 02/19/18 # Bowel Movements 1 Narrative: RLE: dressings clean and dry. intact. decreased sensation to foot. +drain - Urinary Catheter Management Condom Cath placed during this visit: no Indwelling Urethral Catheter Cath placed during this visit: yes Reason for continuing: Hourly intake/output Insertion date: 02/17/18 Results - Labs CBC & Chem 7: 02/20/18 03:28 02/19/18 04:28 Laboratory Results - last 24 hr 02/19/18 02/19/18 02/19/18 04:28 07:20 08:10 Hgb 6.7 L* Hct 20.1 L* Blood Type O Positive Blood Type Recheck Not needed Antibody Screen Negative MTS Gel Crossmatch See Detail See Detail Bld Prod Order Comment 02/19/18 02/20/18 02/20/18 08:55 03:28 04:44 Hgb 6.7 L* Hct 19.6 L* Blood Type Blood Type Recheck Antibody Screen MTS Gel Crossmatch See Detail See Detail Bld Prod Order Comment - Imaging Impressions Pelvis X-Ray 02/19/18 00:00 CONCLUSION: Status post open rigid internal fixation. Assessment and Plan - Assessment and Plan 1) Right posterior wall and column Acetabulum fx s/p ORIF - POD 3 2) Right Anterior column/wall Acetabulum fx s/p ORIF - POD 1 -NWB -posterior hip precautions -CKS -daily dressing changes of lateral hip with primapore. -daily dressing changes of anterior pelvis with xeroform/Primapore -will plan to DC drain POD 2 or 3 -PODUS boot for foot drop right leg -ortho surgeries complete -CM for DC planning -DVT prophylaxis -f/u with Jason or LATISHA in 2 weeks [id number] Prescription Drug Monitoring Database has been queried and verified prior to prescribing the controlled substance. Acute pain exception. This patient has normal, predicted, physiological, and time limited response to an adverse mechanical stimulus associated with surgery, trauma, or acute illness as described in my notes. There is a lack of alternative treatment options other than to include the prescribed narcotic treatment for this condition.
--- NOTE | 2018-02-20 07:58 | XR ---
EXAM DATE: 02/20/2018 6:45 AM EDT AGE/SEX: 62 years / Male INDICATIONS: F/U evaluation of pneumothorax, bilateral. CLINICAL DATA: This is the patient's initial encounter. Patient reports that signs and symptoms have been present for 1 week and indicates a pain score of 5/10. MEDICAL/SURGICAL HISTORY: Hepatitis C. . Surgical repair, pelvis. COMPARISON: [facility] [place], CHEST 1V SINGLE AP, 02/19/2018. . FINDINGS: Bilateral chest tubes are evident. There is no residual pneumothorax. Increasing bibasilar interstiti al changes are evident. There are small bilateral pleural effusions present as well. The heart and pulmonary vascularity are normal. CONCLUSION: Chest tubes in good position without pneumothorax Increasing bibasilar parenchymal changes Electronically signed by: Mario Porter MD 02/20/2018 7:56 AM EDT
[2018-02-20] MEDS: Enoxaparin Inj 30 MG/0.3 ML Syringe SQ SCH ×2 (09:28→21:38)
[2018-02-20] MEDS: ceFAZolin 2 GM Premix Inj 2 GM/50 ML PIGGYBACK IV.SIG SCH ×3 (09:29→23:30)
[2018-02-20] MEDS: Senna/Docusate Sodium 8.6/50 MG Tablet PO SCH ×2 (09:30→21:38)
[2018-02-20] MEDS: Folic Acid 1 MG Tablet PO SCH (09:30)
[2018-02-20] MEDS: Indomethacin 75 MG ER Capsule PO SCH (09:30)
[2018-02-20] MEDS: Calcium/Vitamin D 250/125 MG Tablet PO SCH ×3 (09:31→17:23)
[2018-02-20] MEDS: Lidocaine 5% Patch T-DERMAL SCH (09:31)
[2018-02-20] MEDS: Sodium Chloride 0.9% 2 ML Flush BID IV.FLUSH SCH ×2 (09:36→21:38)
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
[2018-02-20] MEDS: Pantoprazole Inj 40 MG Vial IV.PUSH SCH (17:18)
[2018-02-20] MEDS: Morphine Inj 4 MG/ML Vial IV.PUSH PRN (19:46)
[2018-02-20] MEDS: Melatonin 5 MG Tablet PO SCH (21:38)
[2018-02-21] MEDS: Vancomycin Inj 1,500 MG in Sodium Chlor 0.9% Inj 500 ML IV.SIG SCH (03:37)
[2018-02-21 05:00] LABS: Baso # (Auto) 0.1 th/mm3 (0.0-0.2); Baso % (Auto) 1.4 % (0.0-2.0); Eos # (Auto) 0.6 th/mm3 (0.0-0.4); Eos % (Auto) 5.5 % (0.0-4.0); Hematocrit 25.5 % (39.0-51.0); Hemoglobin 8.6 gm/dL (13.0-17.0); Lymph # (Auto) 1.1 th/mm3 (1.0-4.8); Mean Corpuscular HGB Conc 33.6 % (32.0-36.0); Mean Corpuscular Hemoglobin 29.6 pg (27.0-34.0); Mean Corpuscular Volume 88.3 fL (80.0-100.0); Mean Platelet Volume 8.2 fL (7.0-11.0); Mono % (Auto) 9.2 % (0.0-8.0); Neut % (Auto) 73.9 % (16.0-70.0); Platelet Count 653 th/mm3 (150-450); Red Blood Count 2.89 mil/mm3 (4.50-5.90); Red Cell Distribution Width 18.1 % (11.6-17.2); White Blood Count 10.8 th/mm3 (4.0-11.0)
[2018-02-21] MEDS: Ketorolac Inj 30 MG/ML (IVP) Vial IV.PUSH SCH (05:01)
[2018-02-21 05:14] LABS: Calcium 7.8 mg/dL (8.5-10.1); Potassium 4.4 meq/L (3.5-5.1)
[2018-02-21] MEDS: Methocarbamol 500 MG Tablet PO SCH (06:17)
[2018-02-21] MEDS: Morphine Inj 4 MG/ML Vial IV.PUSH PRN (06:17)
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
--- NOTE | 2018-02-21 07:07 | P.PNOP ---
Subjective Interval history: No complaints. Transferred from ICU. Status post transfusion. Physical Exam Vital signs: Vital Signs 02/20/18 07:54 02/20/18 08:00 02/20/18 09:42 Temperature 98.1 F Pulse Rate 80 Respiratory Rate 19 Blood Pressure 143/67 H Pulse Oximetry 95 94 L 95 02/20/18 11:33 02/20/18 12:00 02/20/18 14:30 Temperature Pulse Rate 85 78 77 Respiratory Rate 22 16 16 Blood Pressure 162/74 H Pulse Oximetry 02/20/18 16:00 02/20/18 18:44 02/20/18 20:00 Temperature 98.4 F 98.7 F Pulse Rate 85 86 Respiratory Rate 14 17 Blood Pressure 145/87 H 134/67 Pulse Oximetry 97 02/20/18 20:18 02/20/18 20:19 02/20/18 21:00 Temperature Pulse Rate 79 Respiratory Rate 16 Blood Pressure Pulse Oximetry 99 96 02/21/18 00:00 02/21/18 04:00 02/21/18 04:07 Temperature 98.2 F 98.2 F Pulse Rate 80 78 75 Respiratory Rate 17 17 16 Blood Pressure 144/57 H 138/68 Pulse Oximetry 97 96 Intake & Output 02/20/18 02/21/18 02/21/18 18:59 06:59 18:59 Intake Total 2790 / 2790 565 / 565 Output Total 2160 / 2160 1625 / 1625 Balance 630 / 630 -1060 / -1060 Weight 81.6 kg Intake: IV 2190 / 2190 565 / 565 LR 1000 mL Inj 1,000 ML @ 90 2090 / 2090 mls/hr IV.CONT .Q11H7M SANJU Rx#: [id number] Vancomycin Inj 1,500 MG In NS 515 / 515 Inj 500 ML @ 257.5 mls/hr IV. SIG Q12H SANJU Rx#:[id number] Ancef 2 GM Premix Inj 2 gm In 100 / 100 50 / 50 50 ml @ 100 mls/hr IV.SIG Q8H SANJU Rx#:[id number] Oral 600 / 600 Output: Urine 1700 / 1700 1625 / 1625 Wound Drainage 20 / 20 # 1 Right Hip KAREN Drain 20 / 20 Chest Tube Drainage 440 / 440 Left Mid-Axillary Chest 350 / 350 Right Mid-Axillary Chest 90 / 90 Other: Date of Last Bowel Movement 02/20/18 02/20/18 # Bowel Movements 2 Narrative: RLE: dressings clean and dry. Drain removed. Decreased sensation to foot with foot drop and significant weakness in right foot, especially dorsiflexion. Dorsalis pedis 0/5, anterior tibialis 0/5 - Urinary Catheter Management Condom Cath placed during this visit: no Reason for continuing: Not indwelling catheter Indwelling Urethral Catheter Cath placed during this visit: yes Reason for continuing: Hourly intake/output Insertion date: 02/17/18 Results - Labs CBC & Chem 7: 02/21/18 04:42 02/21/18 04:42 Laboratory Results - last 24 hr 02/19/18 02/19/18 02/20/18 04:28 07:20 19:14 WBC RBC Hgb Hct MCV MCH MCHC RDW Plt Count MPV Prelim Diff (Auto) Neut % (Auto) Lymph % (Auto) [place] % (Auto) Eos % (Auto) Baso % (Auto) Neut # (Auto) Lymph # (Auto) [place] # (Auto) Eos # (Auto) Baso # (Auto) Differential Comment Sodium Potassium Chloride Carbon Dioxide Anion Gap BUN Creatinine Estimated GFR POC Glucose 96 Random Glucose Calcium Blood Type O Positive Blood Type Recheck Not needed Antibody Screen Negative MTS Gel Crossmatch See Detail See Detail Bld Prod Order Comment 02/21/18 02/21/18 04:42 04:42 WBC 10.8 RBC 2.89 L Hgb 8.6 L Hct 25.5 L MCV 88.3 D MCH 29.6 MCHC 33.6 RDW 18.1 H D Plt Count 653 H MPV 8.2 Prelim Diff (Auto) Slide review pending Neut % (Auto) 73.9 H Lymph % (Auto) 10.0 [place] % (Auto) 9.2 H Eos % (Auto) 5.5 H Baso % (Auto) 1.4 Neut # (Auto) 8.0 H Lymph # (Auto) 1.1 [place] # (Auto) 1.0 H Eos # (Auto) 0.6 H Baso # (Auto) 0.1 Differential Comment . Sodium 144 Potassium 4.4 Chloride 108 H Carbon Dioxide 30.0 Anion Gap 6 BUN 17 Creatinine 0.88 Estimated GFR 88 L POC Glucose Random Glucose 99 Calcium 7.8 L Blood Type Blood Type Recheck Antibody Screen MTS Gel Crossmatch Bld Prod Order Comment - Imaging Impressions Chest X-Ray 02/20/18 06:45 CONCLUSION: Chest tubes in good position without pneumothorax Increasing bibasilar parenchymal changes Chest X-Ray 02/21/18 00:00 CONCLUSION: Small left apical pneumothorax. Otherwise slight improvement in aeration. Assessment and Plan - Assessment and Plan 1) Right posterior wall and column Acetabulum fx s/p ORIF - POD 4 2) Right Anterior column/wall Acetabulum fx s/p ORIF - POD 2 3) right foot drop -NWB -posterior hip precautions -CKS -daily dressing changes of lateral hip with primapore. -daily dressing changes of anterior pelvis with xeroform/Primapore -will plan to DC drain POD 2 or 3 -PODUS boot for foot drop right leg -ortho surgeries complete -CM for DC planning -DVT prophylaxis, Lovenox -f/u with Gomez or LATISHA in 2 weeks [id number] Prescription Drug Monitoring Database has been queried and verified prior to prescribing the controlled substance. Acute pain exception. This patient has normal, predicted, physiological, and time limited response to an adverse mechanical stimulus associated with surgery, trauma, or acute illness as described in my notes. There is a lack of alternative treatment options other than to include the prescribed narcotic treatment for this condition.
[2018-02-21 07:24] LABS: Eosinophils 9 % (0-4); Lymphocytes 15 % (9-44); Metamyelocytes 2 % (0-1); Monocytes 2 % (0-8); Myelocytes 3 % (0-0); Tallied Nucleated RBC 1 (0-0)
[2018-02-21 07:25] LABS: Platelet Morphology Normal (Normal)
[2018-02-21] MEDS: Folic Acid 1 MG Tablet PO SCH (08:59)
[2018-02-21] MEDS: Calcium/Vitamin D 250/125 MG Tablet PO SCH ×3 (08:59→17:07)
[2018-02-21] MEDS: Lidocaine 5% Patch T-DERMAL SCH (08:59)
[2018-02-21] MEDS: Famotidine 20 MG Tablet PO SCH ×2 (08:59→21:48)
[2018-02-21] MEDS: Senna/Docusate Sodium 8.6/50 MG Tablet PO SCH ×2 (09:00→21:49)
[2018-02-21] MEDS: ceFAZolin 2 GM Premix Inj 2 GM/50 ML PIGGYBACK IV.SIG SCH (09:00)
[2018-02-21] MEDS: Enoxaparin Inj 30 MG/0.3 ML Syringe SQ SCH ×2 (09:01→21:49)
[2018-02-21] MEDS: Sodium Chloride 0.9% 2 ML Flush BID IV.FLUSH SCH ×2 (09:01→21:49)
[2018-02-21] MEDS: Indomethacin 75 MG ER Capsule PO SCH (12:50)
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
[2018-02-21] MEDS: Gabapentin 300 MG Capsule PO SCH ×2 (15:11→17:07)
[2018-02-21] MEDS: Melatonin 5 MG Tablet PO SCH (21:48)
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
[2018-02-22] MEDS: Senna/Docusate Sodium 8.6/50 MG Tablet PO SCH ×2 (08:57→22:12)
[2018-02-22] MEDS: Famotidine 20 MG Tablet PO SCH ×2 (08:57→22:12)
[2018-02-22] MEDS: Folic Acid 1 MG Tablet PO SCH (08:57)
[2018-02-22] MEDS: Calcium/Vitamin D 250/125 MG Tablet PO SCH ×3 (08:57→18:00)
[2018-02-22] MEDS: Indomethacin 75 MG ER Capsule PO SCH (08:57)
[2018-02-22] MEDS: Lidocaine 5% Patch T-DERMAL SCH (08:57)
[2018-02-22] MEDS: Gabapentin 300 MG Capsule PO SCH ×3 (08:57→18:00)
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
[2018-02-22] MEDS: Enoxaparin Inj 30 MG/0.3 ML Syringe SQ SCH ×2 (12:31→22:11)
[2018-02-22] MEDS: Sodium Chloride 0.9% 2 ML Flush BID IV.FLUSH SCH ×2 (12:32→22:13)
[2018-02-22] MEDS: Melatonin 5 MG Tablet PO SCH (22:09)
--- NOTE | 2018-02-23 06:39 | P.PNOP ---
Subjective Interval history: POD 4 s/p ORIF right anterior acetabulum POD 6 s/p ORIF right posterior acetabulum doing well. pain controlled. no new complaints. Physical Exam Vital signs: Vital Signs 02/22/18 08:00 02/22/18 08:52 02/22/18 08:57 Temperature 97.5 F L Pulse Rate 71 80 88 Respiratory Rate 18 18 18 Blood Pressure 138/64 129/65 Pulse Oximetry 99 02/22/18 08:58 02/22/18 11:59 02/22/18 12:00 Temperature 97.2 F L Pulse Rate 68 Respiratory Rate 18 16 Blood Pressure 132/65 Pulse Oximetry 98 97 02/22/18 16:00 02/22/18 16:14 02/22/18 19:42 Temperature 97.5 F L 97.1 F L Pulse Rate 73 74 79 Respiratory Rate 17 18 18 Blood Pressure 124/61 128/60 Pulse Oximetry 99 99 02/22/18 22:01 02/22/18 23:44 02/23/18 03:47 Temperature 97.6 F 97.4 F L Pulse Rate 82 81 75 Respiratory Rate 16 17 18 Blood Pressure 130/60 127/65 Pulse Oximetry 96 98 98 02/23/18 05:55 Temperature Pulse Rate 77 Respiratory Rate 20 Blood Pressure Pulse Oximetry Intake & Output 02/22/18 02/22/18 02/23/18 06:59 18:59 06:59 Intake Total 960 / 960 360 / 360 Output Total 1800 / 1800 1100 / 1100 670 / 670 Balance -1800 / -1800 -140 / -140 -310 / -310 Weight 77.2 kg 77.2 kg Intake: Oral 960 / 960 360 / 360 Output: Urine 1500 / 1500 1100 / 1100 500 / 500 Chest Tube Drainage 300 / 300 170 / 170 Left Mid-Axillary Chest 300 / 300 170 / 170 Other: # Bowel Movements 1 0 Narrative: RLE: dressings clean and dry. intact. +foot drop. + PODUS boot. drain removed. + CKS - Urinary Catheter Management Condom Cath placed during this visit: no Reason for continuing: Not indwelling catheter Indwelling Urethral Catheter Cath placed during this visit: yes, but has since been removed by the nurse Reason for continuing: Hourly intake/output Insertion date: 02/17/18 Removal date: 02/18/18 Results - Labs CBC & Chem 7: 02/21/18 04:42 02/21/18 04:42 Laboratory Results - last 24 hr 02/19/18 02/19/18 02/20/18 07:20 08:55 04:44 MTS Gel Crossmatch See Detail See Detail See Detail Assessment and Plan - Assessment and Plan 1) Right posterior wall and column Acetabulum fx s/p ORIF - POD 6 2) Right Anterior column/wall Acetabulum fx s/p ORIF - POD 4 3) right foot drop -Continue NWB - Lovenox for dvt prophylaxis -posterior hip precautions when mobilizing -CKS on the right. -daily dressing changes of lateral hip with primapore. daily dressing changes of anterior pelvis with xeroform/Primapore -Drain dc'd. -PODUS boot for foot drop right leg -CM for DC planning - F/U [address] [place].
[2018-02-23] MEDS: Indomethacin 75 MG ER Capsule PO SCH (10:21)
[2018-02-23] MEDS: Lidocaine 5% Patch T-DERMAL SCH (10:21)
[2018-02-23] MEDS: Senna/Docusate Sodium 8.6/50 MG Tablet PO SCH ×2 (10:21→21:58)
[2018-02-23] MEDS: Folic Acid 1 MG Tablet PO SCH (10:21)
[2018-02-23] MEDS: Gabapentin 300 MG Capsule PO SCH ×3 (10:21→18:06)
[2018-02-23] MEDS: Calcium/Vitamin D 250/125 MG Tablet PO SCH ×3 (10:22→18:06)
[2018-02-23] MEDS: Famotidine 20 MG Tablet PO SCH ×2 (10:22→21:58)
[2018-02-23] MEDS: Sodium Chloride 0.9% 2 ML Flush BID IV.FLUSH SCH ×2 (10:22→21:59)
[2018-02-23] MEDS: Enoxaparin Inj 30 MG/0.3 ML Syringe SQ SCH ×2 (11:00→21:59)
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
[2018-02-23] MEDS: Melatonin 5 MG Tablet PO SCH (21:59)
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
[2018-02-24] MEDS: Gabapentin 300 MG Capsule PO SCH ×3 (08:37→17:24)
[2018-02-24] MEDS: Calcium/Vitamin D 250/125 MG Tablet PO SCH ×3 (08:37→17:24)
[2018-02-24] MEDS: Senna/Docusate Sodium 8.6/50 MG Tablet PO SCH ×2 (08:38→21:50)
[2018-02-24] MEDS: Folic Acid 1 MG Tablet PO SCH (08:38)
[2018-02-24] MEDS: Lidocaine 5% Patch T-DERMAL SCH (08:38)
[2018-02-24] MEDS: Indomethacin 75 MG ER Capsule PO SCH (08:38)
[2018-02-24] MEDS: Famotidine 20 MG Tablet PO SCH ×2 (08:38→21:50)
[2018-02-24] MEDS: Sodium Chloride 0.9% 2 ML Flush BID IV.FLUSH SCH ×2 (09:10→21:50)
[2018-02-24] MEDS: Enoxaparin Inj 30 MG/0.3 ML Syringe SQ SCH ×2 (10:20→21:50)
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
[2018-02-24] MEDS: Melatonin 5 MG Tablet PO SCH (21:45)
--- NOTE | 2018-02-25 07:44 | P.PNOP ---
Subjective Interval history: Resting comfortably no complaints Physical Exam Vital signs: Vital Signs 02/24/18 08:00 02/24/18 10:11 02/24/18 12:00 Temperature 97.7 F 97.9 F Pulse Rate 85 92 H 85 Respiratory Rate 17 19 17 Blood Pressure 136/65 122/59 L Pulse Oximetry 99 99 02/24/18 16:00 02/24/18 19:16 02/25/18 00:43 Temperature 98.3 F 98.1 F 98.2 F Pulse Rate 89 79 79 Respiratory Rate 18 17 18 Blood Pressure 107/58 L 121/55 L 121/58 L Pulse Oximetry 97 98 97 Intake & Output 02/24/18 02/25/18 02/25/18 18:59 06:59 18:59 Intake Total 400 / 400 480 / 480 Output Total 500 / 500 925 / 925 Balance -100 / -100 -445 / -445 Weight 71.4 kg Intake: Oral 400 / 400 480 / 480 Output: Urine 500 / 500 925 / 925 Chest Tube Drainage 0 / 0 Left Mid-Axillary Chest 0 / 0 Other: # Bowel Movements 0 Narrative: Left lower extremity: Clean dry dressings intact. Knee immobilizer in place. Put his boot in place. Intact distal pulses with slightly diminished sensation. Positive foot drop - Urinary Catheter Management Condom Cath placed during this visit: no Reason for continuing: Not indwelling catheter Indwelling Urethral Catheter Cath placed during this visit: yes, but has since been removed by the nurse Reason for continuing: Hourly intake/output Insertion date: 02/17/18 Removal date: 02/18/18 Results - Labs CBC & Chem 7: 02/21/18 04:42 02/21/18 04:42 - Imaging Impressions Chest X-Ray 02/24/18 00:00 CONCLUSION: 1. No significant change in the small left apical pneumothorax. The left-sided chest tube remains in place. 2. Mild hazy airspace opacity again noted. Assessment and Plan - Assessment and Plan 1) Right posterior wall and column Acetabulum fx s/p ORIF - POD 7 2) Right Anterior column/wall Acetabulum fx s/p ORIF - POD 5 3) right foot drop -Continue NWB - Lovenox for dvt prophylaxis -posterior hip precautions when mobilizing -CKS on the right. -daily dressing changes of lateral hip with primapore. daily dressing changes of anterior pelvis with xeroform/Primapore -Drain dc'd. -PODUS boot for foot drop right leg -CM for DC planning - F/U [address] O[place].
[2018-02-25 08:53] VITALS: O2SAT 99
[2018-02-25] MEDS: Senna/Docusate Sodium 8.6/50 MG Tablet PO SCH (09:51)
[2018-02-25] MEDS: Lidocaine 5% Patch T-DERMAL SCH (09:51)
[2018-02-25] MEDS: Indomethacin 75 MG ER Capsule PO SCH (09:51)
[2018-02-25] MEDS: Gabapentin 300 MG Capsule PO SCH ×3 (09:52→18:09)
[2018-02-25] MEDS: Calcium/Vitamin D 250/125 MG Tablet PO SCH ×3 (09:52→18:09)
[2018-02-25] MEDS: Enoxaparin Inj 30 MG/0.3 ML Syringe SQ SCH (09:52)
[2018-02-25] MEDS: Sodium Chloride 0.9% 2 ML Flush BID IV.FLUSH SCH (09:52)
[2018-02-25] MEDS: Folic Acid 1 MG Tablet PO SCH (09:52)
[2018-02-25] MEDS: Famotidine 20 MG Tablet PO SCH (11:48)
[2018-02-25] MEDS: Morphine Inj 4 MG/ML Vial IV.PUSH PRN (11:49)
[2018-02-25 12:40] VITALS: BP 118/62; PULSE 99; TEMP 97.7
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
[2018-02-25 18:10] VITALS: RESP 18
== END 2018-02-25 18:42 | disposition home or self-care (01) ==
LOC: NEPI 15:12 → NEDH 16:25 → MERGE 16:25 → EDBD 16:25 → N03 16:45 → N06 02-20 20:46
PROVIDERS: ADMIT Surgery; ATTEND Surgery
PROC: ORIFACE (2018-02-19 07:27)